=== PATIENT | male | born 1965 | race Caucasian/White ===

== ENCOUNTER 2020-10-29 20:53 | Emergency (ER) | payer BC ==
[2020-10-29 20:59] VITALS: BP 153/84
[2020-10-29] MEDS ORDERED: BACITRACIN ZINC OINT 1 PACKET TOP STA (21:32)
[2020-10-29] MEDS ORDERED: BUFFERED LIDOCAINE 10 ML SYRINGE SUBQ STA (21:32)
[2020-10-29] MEDS ORDERED: TETANUS/DIPHTHERIA/PERTUSSIS 0.5 ML SYRINGE IM ONE (21:32)
--- NOTE | 2020-10-29 22:16 | ED Physician Documentation ---
History of Present Illness - Stated complaint Stated Complaint: RT THUMB LAC - Chief complaint Chief Complaint: Laceration - Additonal information Additional information: 55-year-old male presents emergency department for evaluation of acute laceration to his right thumb sustained when washing dishes at home. Patient is right-hand dominant. This is a 2 and half centimeter laceration on the dorsum of his right thumb between MCP and PIP joint. Unknown last tetanus Review of Systems Constitutional: reports: Reviewed and negative Ears: reports: Reviewed and negative Throat: reports: Reviewed and negative Cardiac: reports: Reviewed and negative Respiratory: reports: Reviewed and negative GI: reports: Reviewed and negative : reports: Reviewed and negative Skin: reports: Laceration (s) Musculoskeletal: reports: Reviewed and negative PD PAST MEDICAL HISTORY - Past Medical History Past Medical History: Yes Cardiovascular: Hypertension Musculoskeletal: Rheumatoid arthritis - Past Surgical History Past Surgical History: Yes Ortho: Other - Present Medications Home Medications: Ambulatory Orders Medication Instructions Recorded Confirmed Adalimumab [Humira Pediatric 1 each SQ 10/29/20 Crohn's] - Allergies Allergies/Adverse Reactions: Allergies Allergy/AdvReac Type Severity Reaction Status Date / Time No Known Drug Allergies Allergy Verified 10/29/20 20:59 - Social History Does the pt smoke?: No Smoking Status: Never smoker Does the pt drink ETOH?: Yes ETOH Use: Beer Does the pt have substance abuse?: Yes Substance Use and Type: Marijuana - Immunizations Immunizations are current?: Yes PD ED PE EXPANDED - General General: Alert, No acute distress - Extremities Extremities: Right finger(s) (2.5 cm laceration dorsum right thumb between MCP and PIP. Bleeding controlled with pressure. Patient is able to flex and extend against resistance. Distal digit is warm. 2+ radial pulse.) Results - Vitals Vitals: Vital Signs - 24 hr 10/29/20 20:56 Temperature 36.1 C L Heart Rate 62 Respiratory 16 Rate Blood Pressure 153/84 H O2 Saturation 98 Oxygen O2 Source Room air Procedures - Laceration (location) Right thumb laceration Length in cm: 2.5 Wound type: Linear, Into subcut fat Neurovascular status: Sensory intact, Motor intact Anesthesia: Lidocaine 1% Wound preparation: Chlorhexadine, Irrigated copiously NS Skin layer closure: Running, Size #-0 - enter number (4), Sutures - enter # (6) Other: Patient tolerated well, No complications, Tetanus booster given PD MEDICAL DECISION MAKING - ED course Complexity details: reviewed results, re-evaluated patient, d/w patient, d/w family ED course: 55-year-old male here with a laceration to his right thumb. This is right-hand dominant. No evidence of tendon injury on exam. Wound closed easily with 6 sutures. Routine wound care emergent return precautions discussed. Tetanus was updated today. Departure - Departure Disposition: 01 Home, Self Care Clinical Impression: Laceration of right thumb Qualifiers: Encounter type: initial encounter Damage to nail status: without damage Foreign body presence: without foreign body Qualified Code(s): S61.011A - Laceration without foreign body of right thumb without damage to nail, initial encounter Condition: Stable Record reviewed to determine appropriate education?: Yes Instructions: ED Laceration Hand Comments: Gucci, it was a pleasure to see you today! Your sutures should be removed in 7 to 10 days. In 24 hours you may remove the dressing wash gently with warm soap and water, apply any antibiotic ointment and a simple bandage. Your tetanus is up-to-date as of today Please attempt to keep your wound clean and dry. Do not submerge it in dirty dishwater or bath water. Return to the emergency department if you have any concerns of infection such as redness, fevers milky drainage increased pain.
== END 2020-10-29 22:25 | disposition home or self-care (01) ==
LOC: ED 20:53
DX: S61.011A Laceration without foreign body of right thumb without damage to nail, initial encounter (principal); W26.0XXA Contact with knife, initial encounter; Y93.G1 Activity, food preparation and clean up; Y92.009 Unspecified place in unspecified non-institutional (private) residence as the place of occurrence of the external cause
CPT/HCPCS: 12001; 90471; 90715; 99282; 99283; A9270